=== PATIENT | female | born 1980 ===

== ENCOUNTER 2018-10-31 14:16 | Emergency (ER) | payer OTHER ==
[~2018-10-31] VITALS: Ht 162.6 cm; Wt 58.1 kg
[2018-10-31] MEDS ORDERED: INTESTINEX680 M1 PO (19:05)
[2018-10-31] MEDS ORDERED: BACTRIM DS TAB1 EACH PO (19:05)
== END 2018-10-31 20:35 | disposition home or self-care (01) ==
LOC: ER 14:16
DX: N39.0 Urinary tract infection, site not specified (principal); B96.29 Other Escherichia coli [E. coli] as the cause of diseases classified elsewhere; B34.9 Viral infection, unspecified